=== PATIENT | female | born 1970 | race Hispanic/Latino ===

== ENCOUNTER 2021-09-30 11:53 | Emergency (ER) | payer SELFPAY ==
[2021-09-30] MEDS ORDERED: Ketorolac 30 MG/ML SDV IM ONE (13:04)
== END 2021-09-30 13:36 | disposition home or self-care (01) ==
LOC: MW.ED 11:53
DX: H11.32 Conjunctival hemorrhage, left eye (principal); K04.7 Periapical abscess without sinus
CPT/HCPCS: 96372; 99283; J1885; 99284

== ENCOUNTER 2021-11-04 19:41 | Emergency (ER) | payer SELFPAY ==
[2021-11-04] MEDS ORDERED: LORazepam 1 MG Tab PO ONE (20:25)
[2021-11-04 21:06] LABS: BLOOD UREA NITROGEN,BUN 14 mg/dL (7.0-18.0); CHLORIDE,CL 106 mmol/L (98-107); GLUCOSE RANDOM 91 mg/dL (74-106); POTASSIUM,K 3.5 mmol/L (3.5-5.1); SODIUM,NA 141 mmol/L (136-145)
== END 2021-11-04 22:08 | disposition home or self-care (01) ==
LOC: MW.ED 19:41
DX: F41.9 Anxiety disorder, unspecified (principal); Z86.16 Personal history of COVID-19
CPT/HCPCS: 36415; 71045; 80053; 83735; 84484; 85025; 93005; 99285; A9270; 93010; 99284

== ENCOUNTER 2023-06-13 08:03 | Day surgery (SDC) | payer SELFPAY ==
[~2023-06-13 08:03] MED LIST: Lactated Ringers 1,000 ML IV SCH
[2023-06-13] MEDS ORDERED: Propofol 200 MG/20 ML SDV ONE ×2 (09:05→09:26)
[2023-06-13] MEDS ORDERED: Lidocaine 2% 5 ML SDV ONE (09:05)
[2023-06-13] MEDS ORDERED: Lactated Ringers 1,000 ML IV SCH (10:00)
== END 2023-06-13 10:49 | disposition home or self-care (01) ==
LOC: MW.SDS 08:03
PROVIDERS: ATTEND Surgery
DX: Z12.11 Encounter for screening for malignant neoplasm of colon (principal); K62.5 Hemorrhage of anus and rectum; K64.9 Unspecified hemorrhoids; Z79.899 Other long term (current) drug therapy; Z79.818 Long term (current) use of other agents affecting estrogen receptors and estrogen levels
CPT/HCPCS: 45378; J2704; J7120; J3490